=== PATIENT | male | born 1960 | race Caucasian/White ===

== ENCOUNTER 2017-08-29 15:09 | Emergency (ER) | payer OTHER ==
[2017-08-29 15:48] VITALS: BMI 72.6
[2017-08-29] MEDS ORDERED: methylPREDNISolone NA SUCC 125 MG/2 ML VIAL IVPUSH ONE (16:16)
--- NOTE | 2017-08-29 16:23 | PDOC ---
History of Present Illness - General History Source: Patient Exam Limitations: No Limitations - History of Present Illness Initial Comments: 08/29/17 16:22 57 y/o bed bound, morbidly obese M with PMH asthma, COPD (not on home 02, uses CPAP at night), IDDM, CHF, hypothyroid, PE 2011 (Tx at [facility] [place] [place], who presents to the ED with increased SOB over the past day. As per pt, two months ago, he started having a productive cough (with white sputum, no blood) with worsening SOB, so he started to take his ventolin daily. Over the last month, he was seen by the PA (does home visits), and she suggested he take his nebulizer tx BID and ventolin pump qd. He had a CXR done, however she sent him to the ED for further evaluation. Over the past day, pt endorses increased congestion, chest tightness, palpitations and subjective chills. Otherwise, denies JAMES, fever, N/V , or changes in urinary or bowel function. 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 quit smoking in 2011 however had smoked 1/2-1 ppd for 30-40yrs, denies alcohol use. Endorses marijuana and cocaine use "on weekends" in his 20's <Brittani Mix - Last Filed: 08/29/17 17:57> <Tone Myers - Last Filed: 08/29/17 20:58> - General Chief Complaint: Respiratory Stated Complaint: DIFFICULTY BREATHING Time Seen by Provider: 08/29/17 15:39 Past History - Travel Traveled outside of the country in the last 30 days: No - Suicide/Smoking/Psychosocial Hx Smoking History: Unknown if ever smoked Hx Alcohol Use: No Drug/Substance Use Hx: No <Brittani Mix - Last Filed: 08/29/17 17:57> <LouisTone - Last Filed: 08/29/17 20:58> - Past Medical History Allergies/Adverse Reactions: Allergies Allergy/AdvReac Type Severity Reaction Status Date / Time No Known Allergies Allergy Verified 08/29/17 15:38 Review of Systems - Review of Systems Able to Perform ROS?: Yes Constitutional: Yes: Chills Respiratory: Yes: Cough, Shortness of Breath, SOB with Exertion, SOB at Rest, Productive cough Cardiac (ROS): Yes: Palpitations All Other Systems: Reviewed and Negative <Brittani Mix - Last Filed: 08/29/17 17:57> *Physical Exam - Vital Signs Last Vital Signs Temp Pulse Resp BP Pulse Ox 99.1 F 81 24 138/81 100 08/29/17 15:10 08/29/17 15:10 08/29/17 15:10 08/29/17 15:10 08/29/17 15:10 - Physical Exam General Appearance: Yes: Mild Distress, Obese (+morbid obesity) HEENT: positive: EOMI, ARIELLA Neck: positive: Supple Respiratory/Chest: positive: Decreased Breath Sounds, Other (+difficult to appreciate d/t body habitus ) Cardiovascular: positive: Regular Rhythm, Regular Rate, Other (+difficult to appreciate d/t pt's body habitus ) Vascular Pulses: Dorsalis-Pedis (R): 2+, Doralis-Pedis (L): 2+ Gastrointestinal/Abdominal: positive: Soft Extremity: positive: Pedal Edema, Swelling (1+ b/l pitting edema ) Neurologic: positive: heat and frost insulator helper II-XII NML intact, Fully Oriented, Alert <Brittani Mix - Last Filed: 08/29/17 17:57> - Vital Signs Last Vital Signs Temp Pulse Resp BP Pulse Ox 99.1 F 81 24 138/81 100 08/29/17 15:10 08/29/17 15:10 08/29/17 15:10 08/29/17 15:10 08/29/17 15:10 <Tone Myers - Last Filed: 08/29/17 20:58> ED Treatment Course - LABORATORY CBC & Chemistry Diagram: 08/29/17 16:56 08/29/17 16:56 - RADIOLOGY Radiology Studies Ordered: Category Date Time Status CXRPORT [CHEST X-RAY PORTABLE*] [RAD] Stat Radiology 08/29/17 16:15 Ordered <Brittani Mix - Last Filed: 08/29/17 17:57> - LABORATORY CBC & Chemistry Diagram: 08/29/17 16:56 08/29/17 18:20 - ADDITIONAL ORDERS Additional order review: Laboratory Results 08/29/17 08/29/17 08/29/17 19:36 18:20 18:20 D-Dimer 282 Cancelled Sodium 137 Potassium 4.6 Chloride 101 Carbon Dioxide 24 Anion Gap 12 BUN 13 Creatinine 0.4 L Creat Clearance w eGFR > 60 Random Glucose 127 H Calcium 9.7 Total Bilirubin 0.4 AST 12 L ALT 25 Alkaline Phosphatase 113 Creatine Kinase Troponin I B-Natriuretic Peptide Total Protein 7.5 Albumin 3.1 L 08/29/17 08/29/17 08/29/17 16:56 16:56 16:56 D-Dimer Sodium Cancelled Potassium Cancelled Chloride Cancelled Carbon Dioxide Cancelled Anion Gap Cancelled BUN Cancelled Creatinine Cancelled Creat Clearance w eGFR Cancelled Random Glucose Cancelled Calcium Cancelled Total Bilirubin Cancelled AST Cancelled ALT Cancelled Alkaline Phosphatase Cancelled Creatine Kinase Cancelled Troponin I Cancelled B-Natriuretic Peptide Cancelled Total Protein Cancelled Albumin Cancelled 08/29/17 16:56 RBC 5.92 H MCV 78.0 L MCHC 32.0 RDW 17.9 H MPV 9.5 Neutrophils % 74.6 Lymphocytes % 14.0 Monocytes % 8.9 Eosinophils % 2.0 Basophils % 0.5 - Medications Given in the ED: ED Medications Discontinued Medications Generic Name Dose Route Start Last Admin Trade Name Eleuterio PRN Reason Stop Dose Admin Albuterol/Ipratropium 1 amp 08/29/17 16:30 08/29/17 18:06 Duoneb - NEB 08/29/17 17:01 1 amp Q15M XOCHITL Administration Methylprednisolone Sodium Succinate 125 mg 08/29/17 16:16 08/29/17 17:00 Solu-Medrol - IVPUSH 08/29/17 16:17 125 mg ONCE ONE Administration <Tone Myers - Last Filed: 08/29/17 20:58> Medical Decision Making - Medical Decision Making 08/29/17 16:46 57 y/o bed bound, morbidly obese M with PMH asthma, COPD (not on home 02, uses CPAP at night), IDDM, CHF, hypothyroid, PE 2011 (Tx at [facility] [place], who presents to the ED with increased SOB over the past day. Possible that pt has asthma vs. COPD exacerbation vs. CHF exacerbation. Will give duonebs, solumedrol, CXR to r/ o PNA, f/u labs - and reassess pt's status. Will order the following CBC with diff CMP BNP CXR Trops EKG 08/29/17 17:51 leukocytosis 13.9 possible 2/2 URI, flu. CMP hemolyzed, will resend 08/29/17 17:57 Will also send d-dimer <Brittani Mix - Last Filed: 08/29/17 17:57> *DC/Admit/Observation/Transfer <Brittani Mix - Last Filed: 08/29/17 17:57> - Attestations Physician Attestion: 08/29/17 20:58 I, Dr. Tone Myers MD, attest that this document has been prepared under my direction and personally reviewed by me in its entirety. I further attest, that it accurately reflects all work, treatment, procedures and medical decision -making performed by me. <Tone Myers - Last Filed: 08/29/17 20:58> Diagnosis at time of Disposition: COPD (chronic obstructive pulmonary disease) - Discharge Dispostion Disposition: HOME - Prescriptions Prescriptions: Albuterol 2.5/Ipratropium 0.5 [Duoneb -] 1 neb NEB Q4H #12 vial Azithromycin 250 mg PO DAILY #4 tablet Prednisone [Prednisone 50 MG TABLETS] 50 mg PO DAILY #4 tablet - Referrals Referrals: Keenan Wu MD, MD [Staff Physician] - - Patient Instructions Printed Discharge Instructions: DI for Chronic Obstructive Pulmonary Disease Additional Instructions: compensation supervisor your nebulizers, azithromycin, and prednisone at [facility]. Take them as prescribed to treat your COPD. If you experience worsening chest pain, shortness of breath, fevers, or any other concerning symptoms, return to the ER immediately. Otherwise follow up with your primary doctor within 1 week. You should ask for a referral to a metal reclamation kettle tender. You can also call the above number to make an appointment with our metal reclamation kettle tender.
[2017-08-29] MEDS ORDERED: methylPREDNISolone NA SUCC 125 MG/2 ML VIAL ONE (16:40)
[2017-08-29] MEDS ORDERED: ALBUTEROL SO4 2.5/IPRATROPIUM 0.5 INH SOL 3 ML VIAL.NEB. NEB ONE ×2 (16:40→23:16)
[2017-08-29] MEDS: ALBUTEROL SO4 2.5/IPRATROPIUM 0.5 INH SOL 3 ML VIAL.NEB. NEB SCH ×2 (17:00→18:06)
[2017-08-29 17:08] LABS: BASO % 0.5 % (0-2.0); HEMATOCRIT 46.1 % (35.4-49); HEMOGLOBIN 14.8 GM/dL (11.7-16.9); MCH 24.9 pg (25.7-33.7); MEAN PLT VOLUME 9.5 fl (7.5-11.1); MONO % 8.9 % (3.8-10.2); NEUT % 74.6 % (42.8-82.8); RBC 5.92 M/mm3 (4.00-5.60); RDW 17.9 % (11.9-15.9); WHITE BLOOD COUNT 13.9 K/mm3 (4.0-10.0)
--- NOTE | 2017-08-29 17:27 | PDOC ---
Attending Attestation - Resident Resident Name: Brittani Mix - ED Attending Attestation I have performed the following: I have examined & evaluated the patient, The case was reviewed & discussed with the resident, I agree w/resident's findings & plan, Exceptions are as noted - HPI HPI: 08/29/17 17:23 57 yo M with history of morbid obesity, asthma/COPD, CHF, PE in 2012 no longer on AC, IDDM, brought in by EMS for shortness of breath for approximately 2 months, significantly worse yesterday. Pt states that he has been using albuterol nebulizers for his symptoms, with good but temporary relief. Yesterday , his shortness of breath became noticeably worse with associated chest tightness, cough, and chills, prompting him to come to ER today. Pt denies any fevers. Denies leg swelling. Pt notes that his sister recently had the flu. - Physicial Exam PE: 08/29/17 17:25 "GENERAL: Awake, alert, and fully oriented, in no acute distress HEAD: No signs of trauma EYES: PERRLA, EOMI, sclera anicteric, conjunctiva clear ENT: Auricles normal inspection, hearing grossly normal, nares patent, oropharynx clear without exudates. Moist mucosa NECK: Nontender, no stepoffs, Normal ROM, supple, no lymphadenopathy, JVD, or masses LUNGS: Distant lung sounds HEART: Regular rate and rhythm, normal S1 and S2, no murmurs, rubs or gallops ABDOMEN: Soft, nontender, normoactive bowel sounds. No guarding, no rebound. No masses EXTREMITIES: Normal range of motion, no edema. No clubbing or cyanosis. No cords, erythema, or tenderness NEUROLOGICAL: Cranial nerves II through XII intact. 5/5 strength and sensation in all extremities, Normal speech, normal gait, normal cerebellar function SKIN: Warm, Dry, normal turgor, no rashes or lesions noted. " - Medical Decision Making 08/29/17 17:25 57 M with SOB x 2 months, acutely worsening yesterday. Possible COPD exacerbation, as pt reports improvement with nebulizers. Lung exam difficult to evaluate due to body habitus. PE is unlikely as pt with no asymmetric leg swelling, vitals without tachycardia or hypoxia. ACS unlikely as well, but will r/o with EKG and trop. Pt may have influenza as pt's sister recently diagnosed with it. - Labs, trop, BNP - CXR - EKG - Duonebs, steroids 08/29/17 20:29 labs wnl. XR on my read unremarkable. Pt reassessed s/p nebs and steroids - now feels significantly better. Lung exam clear. Pt is well appearing, with normal vitals. Clinically stable for DC at this time. I discussed the physical exam findings, ancillary test results and final diagnoses with the patient. I answered all of the patient's questions. The patient was satisfied with the care received and felt comfortable with the discharge plan and treatment plan. The patient agrees to follow up with the primary care physician within 24-72 hours. Heart Score/ECG Review - ECG Impressions Comment:: 08/29/17 21:45 NSR, no DANIEL/STDs, TWI in V3-V6, II, III, AVF, RBBB
[2017-08-29 17:31] LABS: PLATELET COUNT 246 K/MM3 (134-434); PLATELET ESTIMATE OCC GIANT PLTS
[2017-08-29 18:54] LABS: ALBUMIN 3.1 g/dl (3.4-5.0); ANION GAP 12 (8-16); BILIRUBIN,TOTAL 0.4 mg/dL (0.2-1.0); BLOOD UREA NITROGEN 13 mg/dL (7-18); CALCIUM 9.7 mg/dL (8.5-10.1); CHLORIDE 101 mmol/L (98-107); CO2 24 mmol/L (21-32); CREATININE 0.4 mg/dL (0.7-1.3); GLUCOSE,RANDOM 127 mg/dL (74-106); POTASSIUM 4.6 mmol/L (3.5-5.1); SGOT/AST 12 U/L (15-37); SGPT/ALT 25 U/L (12-78); SODIUM 137 mmol/L (136-145); TOT PROT 7.5 g/dl (6.4-8.2)
[2017-08-29 18:55] LABS: ALK PHOS 113 U/L (45-117)
--- NOTE | 2017-08-29 19:16 | PDOC ---
*Physical Exam - Vital Signs Last Vital Signs Temp Pulse Resp BP Pulse Ox 99.1 F 81 24 138/81 100 08/29/17 15:10 08/29/17 15:10 08/29/17 15:10 08/29/17 15:10 08/29/17 15:10 ED Treatment Course - LABORATORY CBC & Chemistry Diagram: 08/29/17 16:56 08/29/17 18:20 - ADDITIONAL ORDERS Additional order review: Laboratory Results 08/29/17 08/29/17 08/29/17 18:20 18:20 16:56 D-Dimer Cancelled Sodium 137 Potassium 4.6 Chloride 101 Carbon Dioxide 24 Anion Gap 12 BUN 13 Creatinine 0.4 L Creat Clearance w eGFR > 60 Random Glucose 127 H Calcium 9.7 Total Bilirubin 0.4 AST 12 L ALT 25 Alkaline Phosphatase 113 Creatine Kinase Cancelled Troponin I Cancelled B-Natriuretic Peptide Total Protein 7.5 Albumin 3.1 L 08/29/17 08/29/17 16:56 16:56 D-Dimer Sodium Cancelled Potassium Cancelled Chloride Cancelled Carbon Dioxide Cancelled Anion Gap Cancelled BUN Cancelled Creatinine Cancelled Creat Clearance w eGFR Cancelled Random Glucose Cancelled Calcium Cancelled Total Bilirubin Cancelled AST Cancelled ALT Cancelled Alkaline Phosphatase Cancelled Creatine Kinase Troponin I B-Natriuretic Peptide Cancelled Total Protein Cancelled Albumin Cancelled 08/29/17 16:56 RBC 5.92 H MCV 78.0 L MCHC 32.0 RDW 17.9 H MPV 9.5 Neutrophils % 74.6 Lymphocytes % 14.0 Monocytes % 8.9 Eosinophils % 2.0 Basophils % 0.5 - Medications Given in the ED: ED Medications Discontinued Medications Generic Name Dose Route Start Last Admin Trade Name Freq PRN Reason Stop Dose Admin Albuterol/Ipratropium 1 amp 08/29/17 16:30 08/29/17 18:06 Duoneb - NEB 08/29/17 17:01 1 amp Q15M XOCHITL Administration Methylprednisolone Sodium Succinate 125 mg 08/29/17 16:16 08/29/17 17:00 Solu-Medrol - IVPUSH 08/29/17 16:17 125 mg ONCE ONE Administration Medical Decision Making - Medical Decision Making 08/29/17 19:14 Pt signed out to me by Dr. Mix, day team. PT presenting with SOB, productive cough and subjective chills. CHF vs. COPD vs. PNA. Breathing improved with duonebs and solumedrol. Not on home O2 but is on CPAP at night. Dispo: unsure Pending: CXR, labs 08/29/17 21:49 Labs negative. Pt will be d/c home with PCP f/u. 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 Take them as prescribed to treat your COPD. If you experience worsening chest pain, shortness of breath, fevers, or any other concerning symptoms, return to the ER immediately. Otherwise follow up with your primary doctor within 1 week. You should ask for a referral to a supervisor vacuum metalizing. You can also call the above number to make an appointment with our supervisor vacuum metalizing. - Post Discharge Activity
[2017-08-29 23:28] VITALS: BP 144/66; PULSE 88; TEMP 98.9
--- NOTE | 2017-09-03 13:28 | EKG ---
Test Reason : Blood Pressure : / mmHG Vent. Rate : 081 BPM Atrial Rate : 081 BPM P-R Int : 144 ms QRS Dur : 156 ms QT Int : 398 ms P-R-T Axes : 085 063 -69 degrees QTc Int : 462 ms NORMAL SINUS RHYTHM WITH SINUS ARRHYTHMIA RIGHT BUNDLE BRANCH BLOCK ABNORMAL ECG WHEN COMPARED WITH ECG OF 14-SEP-2005 22:52, QUESTIONABLE CHANGE IN QRS DURATION Confirmed by MD Norberto, Ryan ([id number]) on 09/03/2017 1:28:46 PM Referred By: Confirmed By:Ryan Thornton MD
== END 2017-08-30 00:41 | disposition home or self-care (01) ==
LOC: JER 15:09
PROC: 3E0333Z Introduction of Anti-inflammatory into Peripheral Vein, Percutaneous Approach (ICD-10-PCS; principal; 2017-08-29)
PROC: 3E0F7GC Introduction of Other Therapeutic Substance into Respiratory Tract, Via Natural or Artificial Opening (ICD-10-PCS; 2017-08-29)
DX: J44.9 Chronic obstructive pulmonary disease, unspecified (principal); J45.909 Unspecified asthma, uncomplicated; E11.9 Type 2 diabetes mellitus without complications; I50.9 Heart failure, unspecified; E03.9 Hypothyroidism, unspecified; G47.33 Obstructive sleep apnea (adult) (pediatric); Z79.4 Long term (current) use of insulin
CPT/HCPCS: 36415; 71045-TC-FY; 80053; 82550; 84484; 85025; 85379; 93005; 93010; 99283-25